=== PATIENT | female | born 1995 | race African-American/Black ===

== ENCOUNTER 2019-09-03 00:12 | Inpatient (IN) ==
[2019-09-03] MEDS ORDERED: MEPERIDINE 50 MG/1 ML VIAL IV PRN (00:20)
[2019-09-03] MEDS ORDERED: BUTORPHANOL 2 MG/ML VIAL IV PRN (00:20)
[2019-09-03] MEDS ORDERED: ONDANSETRON 4 MG/2 ML VIAL IV PRN (00:20)
[2019-09-03] MEDS: LACTATED RINGERS 1,000 ML IV SCH ×3 (00:59→12:15)
[2019-09-03 01:00] LABS: Basophils % 0.2 % (0.0-0.8); Eosinophils # 0.1 10*3/uL (0.0-0.87); Eosinophils % 0.7 % (0.00-10.9); Hematocrit 36.4 VOL% (35.7-47.0); Hemoglobin 11.9 GM/DL (12.0-16.0); Immature Granulocytes % 0.4 %; Immature Granulocytes Absolute 0.05 #; Lymphocytes # 2.2 10*3/uL (1.4-4.0); Lymphocytes % 17.9 % (21.3-54.2); Mean Corpuscular HGB Conc 32.7 GM/DL (32-36); Mean Corpuscular Volume 101.4 FL (87-102); Monocytes % 7.1 % (1.7-12.7); Neutrophils % 73.7 % (38.7-73.9); Platelet Count 203 T/CUMM (130-400); Red Blood Count 3.59 MC/CUMM (3.8-5.5); Red Cell Distribution Width 12.3 % (9.3-17.3); White Blood Count 12.2 T/CUMM (4-12)
[2019-09-03] MEDS ORDERED: hydrALAZINE 20 MG/1 ML VIAL IV ONE ×2 (01:10→01:40)
[2019-09-03 01:14] LABS: INR 0.9; PT Patient Result 9.4 SECS (9.6-12.2)
[2019-09-03] MEDS: AMPICILLIN INJ 2,000 MG in SODIUM CHLORIDE 0.9% 100 ML IV SCH ×4 (01:23→20:08)
[2019-09-03 01:27] LABS: Alanine Aminotransferase 29 U/L (13-56); Albumin 2.8 G/DL (3.4-5.0); Alkaline Phosphatase 134 U/L (45-117); Aspartate Amino Transferase 46 U/L (0-37); Bilirubin,Total < 0.39 MG/DL (0.2-1.0); Blood Urea Nitrogen 12 MG/DL (7-18); Calcium 8.8 MG/DL (8.5-10.1); Estimated Glom Filtration Rate 147 ML/MIN; Glucose 87 MG/DL (74-106); Osmolality,Calculated 275.5 MOS/KG (273-304); Total Protein 6.8 G/DL (6.4-8.3)
[2019-09-03] MEDS ORDERED: MAGNESIUM SULF RIDER 100 ML IV ONE ×2 (04:44→14:59)
[2019-09-03] MEDS ORDERED: LACTATED RINGERS 1,000 ML IV ONE (07:05)
[2019-09-03] MEDS ORDERED: ePHEDrine 50 MG/ML AMP IV PRN (07:05)
[2019-09-03] MEDS ORDERED: diphenhydrAMINE 50 MG/1 ML VIAL IV PRN ×2 (07:05)
[2019-09-03] MEDS ORDERED: ONDANSETRON 4 MG/2 ML VIAL IV ONE (07:05)
[2019-09-03] MEDS ORDERED: CITRIC ACID/SODIUM CITRATE 30 ML UDCUP PO ONE (07:05)
[2019-09-03] MEDS ORDERED: hydrOXYzine HCL 25 MG/1 ML VIAL IM PRN (07:05)
[2019-09-03] MEDS ORDERED: PROMETHAZINE 25 MG/1 ML VIAL IM ONE (07:05)
[2019-09-03] MEDS ORDERED: FAMOTIDINE 20 MG/2 ML VIAL IV ONE (07:05)
[2019-09-03] MEDS ORDERED: NALOXONE 0.4 MG/ML VIAL IV PRN (07:05)
[2019-09-03] MEDS ORDERED: fentaNYL 2 MCG/ROPIV 0.2% EPID 100 ML EPIDURAL SCH (07:30)
[2019-09-03] MEDS ORDERED: LACTATED RINGERS 1,000 ML IV SCH (07:30)
[2019-09-03] MEDS ORDERED: OXYTOCIN/LR 20 UNIT/1,000 ML BAG IV SCH (08:30)
[2019-09-03 10:52] LABS: Apearance,Urine CLEAR (Clear); Bilirubin,Urine Negative (Negative); Blood, Urine Small mg/dL (Negative); Glucose,Urine (UA) Negative (Negative); Ketones,Urine Negative (Negative); Mucus,Urine Occasional /LPF (Occasional); Nitrite,Urine Negative (Negative); Protein,Urine 100 MG/DL; RBC,Urine <1 /HPF (0-4); Squamous Epithelial Cell,Urine Occasional /HPF (0-10); Urine Color Yellow (Yellow); Urine Specific Gravity 1.014 (1.001-1.035); Urine Urobilinogen < 2.0 EU/DL (0.2-1.0); WBC,Urine 1 /HPF (0-6)
[2019-09-03] MEDS ORDERED: LABETALOL 100 MG TABLET PO SCH (11:30)
[2019-09-03] MEDS ORDERED: hydrALAZINE 20 MG/1 ML VIAL IV PRN (13:25)
[2019-09-03] MEDS ORDERED: hydrALAZINE 20 MG/1 ML VIAL IV SCH (13:30)
[2019-09-03] MEDS ORDERED: miSOPROStoL 200 MCG TABLET ONE (14:44)
[2019-09-03] MEDS ORDERED: CARBOPROST TROMETHAMINE 250 MCG/ML AMP IM ONE (14:45)
[2019-09-03] MEDS ORDERED: METHYLERGONOVINE 0.2 MG/1 ML AMP ONE (14:45)
[2019-09-03] MEDS ORDERED: MAGNESIUM SULF RIDER 4 GM in PREMIX 1 EACH IV ONE (14:58)
[2019-09-03] MEDS ORDERED: MAGNESIUM SULF DRIP 40 GM/1,000 ML ML IV SCH ×2 (15:30→20:30)
[2019-09-03 19:49] LABS: Apearance,Urine Slightly Hazy (Clear); Bilirubin,Urine Negative (Negative); Blood, Urine Large mg/dL (Negative); Glucose,Urine (UA) Negative (Negative); Hyaline Casts,Urine 11 /LPF (0-3); Ketones,Urine 5 mg/dL (Negative); Mucus,Urine Occasional /LPF (Occasional); Nitrite,Urine Negative (Negative); Protein,Urine 30 MG/DL; RBC,Urine 2080 /HPF (0-4); Squamous Epithelial Cell,Urine Occasional /HPF (0-10); Urine Color Yellow (Yellow); Urine Specific Gravity 1.015 (1.001-1.035); Urine Urobilinogen < 2.0 EU/DL (0.2-1.0); WBC,Urine 18 /HPF (0-6)
[2019-09-03] MEDS ORDERED: DIPH/TET/ACEL PERT BOOSTER VACCINE 0.5 ML VIAL IM ONE (20:23)
[2019-09-03] MEDS ORDERED: oxyCODONE/ACETAMINOPHEN 5-325 MG TABLET PO PRN ×2 (20:23)
[2019-09-03] MEDS ORDERED: HYDROCORTISONE 2.5% RECTAL CREAM 30 GM TUBE TOP PRN (20:23)
[2019-09-03] MEDS ORDERED: MEASLES/MUMPS/RUBELLA VACCINE 0.5 ML VIAL SUBCUT ONE (20:23)
[2019-09-03] MEDS ORDERED: BISACODYL 10 MG SUPP RECTAL PRN (20:23)
[2019-09-03] MEDS ORDERED: ACETAMINOPHEN 325 MG TABLET PO PRN (20:23)
[2019-09-03] MEDS ORDERED: RHO(D) IMMUNE GLOBULIN 300 MCG SYRINGE IM ONE (20:23)
[2019-09-03] MEDS ORDERED: LANOLIN 50% CREAM 0.3 OZ TUBE TOP PRN (20:23)
[2019-09-03] MEDS ORDERED: BENZOCAINE 20%/MENTHOL 0.5% SPRAY 56 GM CAN TOP PRN (20:23)
[2019-09-03] MEDS ORDERED: ACETAMINOPHEN/CODEINE 300-30 MG TABLET PO PRN (20:23)
[2019-09-03] MEDS ORDERED: WITCH HAZEL PADS 100/JAR TOP PRN (20:23)
[2019-09-03] MEDS: DOCUSATE SODIUM 100 MG CAPSULE PO SCH (22:06)
[2019-09-04 07:15] LABS: Basophils # 0.1 10*3/uL (0.0-0.2); Basophils % 0.3 % (0.0-0.8); Eosinophils % 0.1 % (0.00-10.9); Hematocrit 32.8 VOL% (35.7-47.0); Hemoglobin 10.9 GM/DL (12.0-16.0); Immature Granulocytes % 1.2 %; Immature Granulocytes Absolute 0.27 #; Lymphocytes # 1.5 10*3/uL (1.4-4.0); Lymphocytes % 6.9 % (21.3-54.2); Mean Corpuscular HGB Conc 33.2 GM/DL (32-36); Mean Corpuscular Volume 99.4 FL (87-102); Mean Platelet Volume 12.6 FL (9.6-12.0); Monocytes % 8.4 % (1.7-12.7); Neutrophils % 83.1 % (38.7-73.9); Platelet Count 197 T/CUMM (130-400); Red Cell Distribution Width 12.6 % (9.3-17.3)
[2019-09-04] MEDS: IBUPROFEN 800 MG TABLET PO PRN ×2 (07:40→16:29)
[2019-09-04 07:51] LABS: Band Neutrophils 1 % (0-10); Lymphocytes 7 % (20-55); Segmented Neutrophils 86 % (50-85); Total Cells Counted 100
[2019-09-04 08:18] LABS: Hypochromasia Slight; Macrocytosis 1+; Platelet Estimate Normal
[2019-09-04 08:19] LABS: Misc Morphology L
[2019-09-04 08:20] LABS: Polychromasia Slight
[2019-09-04] MEDS: DOCUSATE SODIUM 100 MG CAPSULE PO SCH (22:07)
[2019-09-05] MEDS: IBUPROFEN 800 MG TABLET PO PRN (06:21)
[2019-09-05] MEDS: DOCUSATE SODIUM 100 MG CAPSULE PO SCH (09:29)
[2019-09-05] MEDS ORDERED: DIPH/TET/ACEL PERT BOOSTER VACCINE 0.5 ML VIAL IM ONE (12:04)
[2019-09-05 12:10] VITALS: BP 136/94
== END 2019-09-05 14:00 | disposition home or self-care (01) | DRG 560 ==
LOC: N.LDOUT 00:12 → N.LD 00:14 → N.OB 09-04 15:06
PROVIDERS: ADMIT Obstetrics & Gynecology; ATTEND Obstetrics & Gynecology